=== PATIENT | female | born 1950 | race Caucasian/White ===

== ENCOUNTER 2020-10-02 19:17 | Emergency (ER) | payer MEDICARE, SELFPAY ==
--- NOTE | ~2020-10-02 | XR_ITS ---
EXAMINATION: XR ankle RT min 3V EXAM DATE: 10/02/2020 20:40 INDICATION: Right ankle pain and swelling s/p fall. TECHNIQUE: Right ankle frontal, lateral and oblique projections obtained and reviewed. There is no p rior study for comparison. FINDINGS: There is acute closed posttraumatic fracture through the right fibular distal metaphysis ex tending into the superolateral aspect of mortise. Medial malleolus is intact. There is about 5 mm of posterior lateral displacement. Recommend orthopedic consult. IMPRESSION: Right fibular distal metaphyseal fracture into mortise. Reviewed, dictated and finalized at location [facility]. [employer]
[2020-10-02 20:03] VITALS: BP 127/58; PULSE 66; RESP 16; TEMP 35.9; O2SAT 99
[2020-10-02] MEDS: traMADol HCL (*CRX) 50 MG TABLET PO (20:57)
--- NOTE | 2020-10-02 21:03 | ED.LOWEXIN ---
HPI - Extremity Injury (Lower) General Chief Complaint: Extremity Injury, Lower Stated Complaint: ankle pain Time Seen by Provider: 10/02/20 20:33 Source: patient Mode of arrival: wheelchair Limitations: no limitations History of Present Illness HPI Narrative: This is a 69 year old female that presents to the ER for right ankle pain after an injury today. Reports she slipped on the ice. Reports pain in the ankle, especially with weight bearing. Denies hitting her head, other injuries, or numbness. Related Data Allergies Allergy/AdvReac Type Severity Reaction Status Date / Time codeine Allergy Abdominal Verified 10/02/20 23:00 Pain meperidine [From Demerol] Allergy Swelling Verified 10/02/20 23:00 Review of Systems Review of Systems: Narrative: CONSTITUTIONAL: Denies fever MUSCULOSKELETAL: Reports joint pain, and myalgia. NEUROLOGIC: Denies numbness All systems reviewed & are unremarkable except as noted in HPI and below PMFSH Surgical History Surgical History (Updated 10/02/20 @ 21:08 by Radha Burrell PA-C) History of hysterectomy Social History Social History (Updated 10/02/20 @ 21:08 by Radha Burrell PA-C) Smoking status: Never smoker Gender identity (if verbalized by the patient): Female Exam Narrative: Exam Narrative: GENERAL: Well-appearing, well-nourished, and in no acute distress. HEAD: Normocephalic, atraumatic. EYES: EOMI. EXTREMITIES: Normal range of motion. No obvious deformity. Moderate edema about the right lateral malleolus, tender to palpation. Normal DP pulses. Normal sensation SKIN: Warm, dry, no rash. NEURO: No focal deficits. Alert and oriented x3. PSYCH: Normal mood and affect Course Consultations Consultation #1: Spoke with Dr. Monteiro about patient and workup who will follow up in clinic. Date: 10/02/20 Time: 23:25 Vital Signs Vital signs: Vital Signs Temperature 96.7 F L 10/02/20 20:03 Pulse Rate 66 10/02/20 20:03 Respiratory Rate 16 10/02/20 20:03 Blood Pressure 127/58 L 10/02/20 20:03 Pulse Oximetry 99 10/02/20 20:03 Temperature 97.6 F 10/02/20 21:40 Pulse Rate 60 10/02/20 21:40 Respiratory Rate 16 10/02/20 21:40 Blood Pressure 146/68 H 10/02/20 21:40 Pulse Oximetry 97 10/02/20 21:40 MDM - Extremity Injury (Lower) MDM Narrative Medical decision making narrative: Patient presents the emergency department for right ankle pain after an injury today. Right ankle x-ray shows right fibular distal metaphyseal fracture with mild displacement. Patient placed in a splint and given crutches. Was instructed to rest, ice and elevate. Will be given pain medication as needed. Spoke with Dr. Monteiro about patient and workup who will follow up in clinic. She was given warnings to return to the ER Imaging Data Radiologist's impression: ITS Impressions Ankle X-Ray 10/02/20 20:45 IMPRESSION: Right fibular distal metaphyseal fracture into mortise. Critical Care Time Critical Care Time Critical Care Time: No Discharge Plan Discharge Clinical Impression: Closed fracture of distal end of right fibula Qualifiers: Encounter type: initial encounter Fracture morphology: unspecified fracture morphology Qualified Code(s): S82.831A - Other fracture of upper and lower end of right fibula, initial encounter for closed fracture Patient Disposition: Home, Self-Care Condition: Stable Instructions: Ankle Fracture (ED) Additional Instructions: Return to the emergency department if you experience redness and swelling of your leg, numbness, or any other symptoms that are concerning to you Wear splint and use crutches. No weight on the affected leg. Ice and elevate extremity. Pain medication as needed and directed. Follow up with orthopedics for further care. Prescriptions: New tramadol 50 mg tablet 50 mg PO Q6H PRN (Reason: pain) Qty: 20 RF: 0 Follow-up/Referrals: Miky Monteiro MD [Physician] - 3 Days [place]*
[2020-10-02 21:40] VITALS: BP 146/68; PULSE 60; RESP 16; TEMP 36.4; O2SAT 97
== END 2020-10-02 23:35 | disposition home or self-care (01) ==
PROVIDERS: Emergency Provider Emergency Medicine; PCP Family Medicine
DX: S89.391A Other physeal fracture of lower end of right fibula, initial encounter for closed fracture (principal); W00.0XXA Fall on same level due to ice and snow, initial encounter
CPT/HCPCS: 29515; 73610; 99284; A9270

== ENCOUNTER 2021-03-04 09:23 | Outpatient (CLI) | payer MEDICARE, SELFPAY ==
--- NOTE | ~2021-03-04 | DEXA_ITS ---
Bone Density Report Name: Rula Brock Age: 70 Sex: Female Ethnicity: White Date of : 1950 Indication: osteopenia; monitoring treatment; height loss; prior fracture; cancer; hysterectomy; postmenopausal Referring Provider: Jasvir Hernandez Study: Bone densitometry was performed. Exam Date: March 04, 2021 Accession number: [id number] Bone Density: Region BMD T-score Z-score Classification AP Spine (L1, L4) 0.868 -1.5 0.6 Osteopenia Femoral Neck (Left) 0.691 -1.4 0.4 Osteopenia Total Hip (Left) 0.832 -0.9 0.6 Normal Total Hip Bilateral Avg 0.812 -1.0 0.5 Osteopenia Femoral Neck (Right) 0.637 -1.9 -0.1 Osteopenia Total Hip (Right) 0.791 -1.2 0.3 Osteopenia World Health Organization criteria for BMD impression classify patients as: Normal (T-score at or above -1.0), Osteopenia (T-score between -1.0 and -2.5), or Osteoporosis (T-score at or below -2.5). 10-year Fracture Risk: FRAX not reported because: Treated for osteoporosis Previous Exams: Region Exam Age BMD T-score BMD Change BMD Change Date g/cm2 vs Baseline vs Previous AP Spine(L1, L4) 03/04/2021 70 0.868 -1.5 0.070(8.7%)* 0.070(8.7%)* 05/11/2018 67 0.799 -2.2 Total Hip(Left) 03/04/2021 70 0.832 -0.9 0.028(3.5%)* 0.028(3.5%)* 05/11/2018 67 0.803 -1.1 Total Hip(Right) 03/04/2021 70 0.791 -1.2 -0.016(-2.0%) -0.016(-2.0%) 05/11/2018 67 0.808 -1.1 *Denotes significance at 95% confidence level, LSC for AP Spine = 0.022 g/cm2, LSC for Total Hip = 0.027 g/cm2 Clinical Information Provided by Patient: Has had a low trauma fracture Is being treated for osteoporosis Has used the following medications: Reclast (i.e. zoledronate), Vitamin D, Calcium Has the following medical conditions: Cancer, Hysterectomy Patient maximum height was 64 Menopause Age: 40 No regular weight bearing exercise Onset of menses at age 12 Number of children 1 Impression: The patient has low bone mass, based on the Right Femoral Neck T-score. The patient has risk factors, including: previous fracture. No significant bone loss was observed. Discussion: PATIENT UNDER TREATMENT WITH NO SIGNIFICANT BMD LOSS SINCE LAST EXAM. In an untreated patient, BMD typically declines with age. A lack of decline or gain is usually a sign that treatment is efficacious and fracture risk is reduced. It is important to ask patients whether they are taking their medications and to encourage continued and appropriate co
--- NOTE | ~2021-03-04 | DEXA_ITS ---
Bone Density Report Name: Rula Brock Age: 70 Sex: Female Ethnicity: White Date of : 1950 Indication: postmenopausal; height loss; prior fracture; cancer; hysterectomy; Referring Provider: Jasvir Hernandez Study: Bone densitometry was performed. Exam Date: March 04, 2021 Accession number: [id number] Bone Density: Region BMD T-score Z-score Classification Total Forearm (Right) 0.469 -1.9 0.3 1/3 Forearm (Right) 0.601 -1.4 0.7 UD Forearm (Right) 0.450 0.7 2.4 World Health Organization criteria for BMD impression classify patients as: Normal (T-score at or above -1.0), Osteopenia (T-score between -1.0 and -2.5), or Osteoporosis (T-score at or below -2.5). Clinical Information Provided by Patient: Has had a low trauma fracture Is being treated for osteoporosis Has used the following medications: Reclast (i.e. zoledronate), Vitamin D, Calcium Has the following medical conditions: Cancer, Hysterectomy Patient maximum height was 64 Menopause Age: 40 No regular weight bearing exercise Onset of menses at age 12 Number of children 1 Impression: The patient has low bone mass, based on the Right Third Radius T-score. The patient has risk factors, including: previous fracture. Discussion: It is important to ask patients whether they are taking their medications and to encourage continued and appropriate compliance with their osteoporosis therapies to reduce fracture risk. It is also important to review their risk factors and encourage appropriate calcium and vitamin D intakes, exercise, fall prevention and other lifestyle measures. Follow-Up: Consider a repeat BMD and Vertebral Fracture Assessment (VFA) exam in 2 years or sooner if medically necessary, to reassess this patient's status. Reported by: JEREMIAH on 03/04/2021 10:12:00 AM. Reviewed, dictated and finalized at location [facility]
== END 2021-03-04 09:24 | disposition home or self-care (01) ==
PROVIDERS: PCP Family Medicine; Visit Provider Internal Medicine Medical Oncology
DX: M81.0 Age-related osteoporosis without current pathological fracture (principal); M85.88 Other specified disorders of bone density and structure, other site; M85.852 Other specified disorders of bone density and structure, left thigh; M85.851 Other specified disorders of bone density and structure, right thigh
CPT/HCPCS: 77080; 77081

== ENCOUNTER 2024-01-16 10:36 | Outpatient (CLI) | payer MEDICARE, SELFPAY | END 2024-01-16 10:37 | disposition home or self-care (01) | LOC: ANHLAB 10:42 | PROVIDERS: PCP Family Medicine; Visit Provider Internal Medicine Pulmonary Disease | DX: R79.89 Other specified abnormal findings of blood chemistry (principal) | CPT/HCPCS: 36415; 82728 ==

== ENCOUNTER 2024-10-11 10:53 | Outpatient (CLI) | payer MEDICARE, SELFPAY ==
[2024-10-11 12:36] LABS: Cholesterol 224 mg/dL (0-200); HDL Direct 35 mg/dL; Triglycerides 138 mg/dL (<150)
[2024-10-11 12:47] LABS: LDL Cholesterol Direct 160 mg/dL
== END 2024-10-11 10:54 | disposition home or self-care (01) ==
PROVIDERS: PCP Family Medicine
DX: Z13.220 Encounter for screening for lipoid disorders (principal); Z79.899 Other long term (current) drug therapy
CPT/HCPCS: 36415; 80061

== ENCOUNTER 2025-07-23 08:47 | Outpatient (CLI) | payer MEDICARE, SELFPAY ==
[2025-07-23 09:49] LABS: Cholesterol 159 mg/dL (0-200); HDL Direct 40 mg/dL; Triglycerides 104 mg/dL (<150)
== END 2025-07-23 08:48 | disposition home or self-care (01) ==
LOC: ANHLAB 08:50
PROVIDERS: PCP Family Medicine; Visit Provider Family Medicine
DX: E78.5 Hyperlipidemia, unspecified (principal)
CPT/HCPCS: 36415; 80061